=== PATIENT | male | born 1945 | race African-American/Black ===

== ENCOUNTER 2017-06-29 18:56 | Emergency (ER) | payer OTHER ==
[~2017-06-29] VITALS: Ht 182.9 cm; Wt 106.6 kg
--- NOTE | ~2017-06-29 | EKG ---
[place] [address] [facility] [facility] [place] [place] [address] ELECTROCARDIOGRAM REPORT Name: CHRISTIAN RENNERNE TACHO [facility]: [facility] [id number] Admission: 06/29/17 Attend Phys: Discharge: 06/29/17 Date of : 47 Report #: [id number] THIS REPORT FOR: //name// [facility] ED Test Date: 2017-06-29 Test Time: 19:07:08 Pat Name: NATANAEL RENNER Department: Room: Gender: M [employer]: ELSA : 1945 Requested By: Naren Mcmillan Order Number: [id number] MD: Nathan Portillo Measurements Intervals [place] Rate: 101 P: 49 AL: 146 QRS: 52 QRSD: 131 T: 180 QT: 302 QTc: 392 Interpretive Statements Sinus tachycardia Nonspecific ST and T wave abnormality Compared to ECG 01/03/1999 06:39:00 Nonspecific change in the ST and T-wave segments Electronically Signed On 06-30-2017 8:41:52 CDT by Nathan Portillo [email or web address] <ELECTRONICALLY SIGNED> By: Nathan Portillo MD, [facility] 06/30/17 0841 06 06 Nathan Portillo MD, [facility] /EPI
[2017-06-29] MEDS ORDERED: TACROLIMUS1 MG PO (19:02)
[2017-06-29] MEDS ORDERED: RAPAMUNE0.5 MG PO (19:02)
[2017-06-29] MEDS ORDERED: ALLOPURINOL 10100 M1 PO (19:02)
[2017-06-29] MEDS ORDERED: AMBIEN 5 MG TABL5 M1 PO (19:03)
[2017-06-29] MEDS ORDERED: LIPITOR 20 MG T20 M1 PO (19:03)
[2017-06-29] MEDS ORDERED: DIOVAN320 MG PO (19:03)
[2017-06-29] MEDS ORDERED: PROBENECID-COL1 EACH PO (19:03)
[2017-06-29] MEDS ORDERED: DOXYCYCLINE 10100 M1 PO (19:04)
[2017-06-29] MEDS ORDERED: ROBITUSSIN100 MG/53 (19:04)
[2017-06-29] MEDS ORDERED: COLCRYS0.6 MG PO (19:05)
[2017-06-29 19:11] LABS: ABSOLUTE NEUTROPHILS 3.7 thou/uL (1.4-8.2); EOSINOPHILS 2.7 % (0.0-3.0); HEMATOCRIT 43.8 % (42.0-52.0); LYMPHOCYTES 20.6 % (24.0-44.0); MCH 24.3 pg (26.0-34.0); MONOCYTES 8.3 % (1.0-8.0); PLATELET COUNT 134 thou/uL (150-400); POLYS 67.4 % (36.0-66.0); RBC 5.76 mil/uL (4.50-6.00); RDW 19.5 % (10.5-14.5); WBC 5.5 thou/uL (4.0-11.0)
[2017-06-29 19:12] LABS: MANUAL DIFF NO
[2017-06-29 19:24] LABS: ANION GAP 8 mmol/L (7-16); BUN 23 mg/dL (7-18); CHLORIDE 108 mmol/L (98-107); CO2 27 mmol/L (21-32); CREATININE 1.7 mg/dL (0.7-1.3); GLUCOSE 123 mg/dL (74-106); POTASSIUM 4.4 mmol/L (3.5-5.1); SODIUM 143 mmol/L (136-145)
[2017-06-29 19:26] LABS: PROTIME 10.6 Seconds (9.3-11.4)
[2017-06-29 19:32] LABS: ALBUMIN 3.7 g/dL (3.4-5.0); ALKALINE PHOSPHATASE 93 U/L (46-116); MAGNESIUM 1.9 mg/dL (1.8-2.4); SGOT 112 U/L (15-37); SGPT 76 U/L (30-65); TOTAL BILIRUBIN 1.7 mg/dL (<0.1-1.0); TOTAL PROTEIN 6.9 g/dL (6.4-8.2); TROPONIN-I < 0.04 ng/mL (<0.04-0.07)
[2017-06-29 20:56] VITALS: BP 133/97
== END 2017-06-29 21:44 | disposition short-term general hospital (02) ==
LOC: ER 18:56
PROVIDERS: Emergency Medicine
DX: K85.90 Acute pancreatitis without necrosis or infection, unspecified (principal); R07.89 Other chest pain; Z85.89 Personal history of malignant neoplasm of other organs and systems; E66.9 Obesity, unspecified; Z94.1 Heart transplant status; Z88.0 Allergy status to penicillin; Z88.8 Allergy status to other drugs, medicaments and biological substances